=== PATIENT | female | born 2005 | race African-American/Black ===

== ENCOUNTER 2025-05-06 15:01 | Emergency (ER) | payer BC, OTHER ==
[2025-05-06 17:20] LABS: #Basophils 0.06 10x3/uL (0.0-0.2); #Eosinophils 0.07 10x3/uL (0.0-0.7); #Monocytes 0.41 10x3/uL (0.11-0.59); #Neutrophils 2.15 10x3/uL (1.40-6.50); %Basophils 1.2 % (0.0-1.0); %Eosinophils 1.4 % (0.0-10.0); %Lymphocytes 46.1 % (21.0-51.0); %Monocytes 8.2 % (0.0-10.0); %Neutrophils 42.7 % (42.0-75.0); Hematocrit 32.6 % (36.0-47.0); Hemoglobin 9.8 g/dL (12.0-16.0); Mean Corpuscular Hemoglobin 23.3 pg (27.0-31.0); Mean Corpuscular Volume 77.6 fL (78.0-98.0); Platelet Count 316 10x3/uL (130-400); Red Blood Cell (RBC) Count 4.20 mill/uL (4.20-5.40); White Blood Cell (WBC) Count 5.03 10x3/uL (4.8-10.8)
[2025-05-06 18:06] LABS: ALT (SGPT) Less than 7 U/L (Less than 34); AST (SGOT) 25 U/L (11-34); Albumin 4.2 g/dL (3.1-4.5); Alkaline Phosphatase 65 U/L (40-110); Anion Gap 6 mmol/L (10-20); BUN (Urea Nitrogen) 10 mg/dL (7.0-18.7); Bilirubin, Total 0.3 mg/dL (0.3-1.2); Calc. Creatinine Clearance 0 mL/min (70-130); Calcium 9.3 mg/dL (7.8-10.44); Carbon Dioxide 23 mmol/L (22-29); Chloride 112 mmol/L (98-107); Glucose 93 mg/dL (70-105); Lipase 18 U/L (8-78); Potassium 3.5 mmol/L (3.5-5.1); Sodium 137 mmol/L (136-145)
[2025-05-06 18:48] LABS: Globulin 3.5 g/dL (2.4-3.5)
== END 2025-05-06 19:41 ==
LOC: ERS 15:01
DX: K52.9 Noninfective gastroenteritis and colitis, unspecified (principal)
CPT/HCPCS: 80053; 83690; 85025; 99283; Q0162